=== PATIENT | male | born 1945 | race Caucasian/White ===

== ENCOUNTER 2023-12-21 11:19 | Outpatient (CLI) | payer MEDICARE | END 2023-12-21 23:59 | disposition EMS.NT | LOC: EMS 11:19 | DX: S00.83XA Contusion of other part of head, initial encounter (principal); W01.0XXA Fall on same level from slipping, tripping and stumbling without subsequent striking against object, initial encounter; Y92.480 Sidewalk as the place of occurrence of the external cause ==

== ENCOUNTER 2023-12-21 12:15 | Emergency (ER) | payer MEDICARE ==
[2023-12-21] MEDS ORDERED: ACETAMINOPHEN 500 MG TABLET PO ONE (12:36)
--- NOTE | 2023-12-21 15:37 | ED Physician Documentation ---
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 He was walking with family today on uneven ground and fell going forward. He injured his left chest wall, left knee, and left face/head. He is up-to-date on tetanus. There was brief loss of consciousness. PD ED PE NORMAL - Vitals Vital signs reviewed: Yes - General General: Alert and oriented X 3, No acute distress - HEENT HEENT: PERRL, EOMI, Other (Abrasions on the left forehead and face without any bony facial tenderness. There is a contusion on the left forehead.) - Neck Neck: Supple, no meningeal sign, No bony TTP - Cardiac Cardiac: RRR, No murmur, Other (Tender over the anterior upper and middle ribs on the left. No step-off or crepitance.) - Respiratory Respiratory: No respiratory distress, Clear bilaterally - Abdomen Abdomen: Non tender - Derm Derm: Normal color, Warm and dry - Extremities Extremities: Other (Shallow abrasion over the left knee with mild tenderness but full range of motion. No ligamentous laxity.) - Neuro Neuro: Alert and oriented X 3, Normal speech Eye Opening: Spontaneous Motor: Obeys Commands Verbal: Oriented GCS Score: 15 Results - Rads (name of study) CT head, C-spine, chest, and left knee x-ray were negative Relevant Findings:: Final report received, EMP independent interpretation of test Departure - Departure Disposition: 01 Home, Self Care Clinical Impression: Ground-level fall Contusion of left knee Qualifiers: Encounter type: initial encounter Qualified Code(s): S80.02XA - Contusion of left knee, initial encounter Concussion Qualifiers: Encounter type: initial encounter Loss of consciousness presence/duration: without LOC Qualified Code(s): S06.0X0A - Concussion without loss of consciousness, initial encounter Chest wall contusion Qualifiers: Encounter type: initial encounter Laterality: left Qualified Code(s): S20.212A - Contusion of left front wall of thorax, initial encounter Comments: EMR was down at the time of service so discharge counseling included wound care and icing as well as Tylenol for pain.
[2023-12-21 15:40] VITALS: BP 116/80; O2SAT 100
--- NOTE | 2023-12-21 16:06 | XRAY Report ---
PROCEDURE: X-RAY OF THE LEFT KNEE THREE VIEWS INDICATIONS: fall with left knee pain; priors: none TECHNIQUE: 4 views of the knee(s) were acquired. COMPARISON: None. FINDINGS: Bones: No fractures or dislocations mild degenerative osteophytes.. No suspicious bony lesions. Soft tissues: No knee joint effusion. No suspicious soft tissue calcifications or masses. IMPRESSION: No acute bony abnormality. Mild degenerative change. Reviewed by: Yinka Tong MD on 12/21/2023 1:26 PM PDT Approved by: Yinka Tong MD on 12/21/2023 1:26 PM PDT Station ID: [id number]
--- NOTE | 2023-12-21 16:06 | CT Report ---
PROCEDURE: CT HEAD WO CONTRAST INDICATIONS: fall/trauma TECHNIQUE: 4.5 mm thick angled axial sections acquired from the foramen magnum to the vertex after the administr ation of intravenous contrast. For radiation dose reduction, the following was used: automated expo sure control, adjustment of mA and/or kV according to patient size. COMPARISON: None FINDINGS: Image quality: Excellent. CSF Spaces: Basal cisterns are patent. No extra-axial fluid collections. Ventricles are normal in size and shape. Brain: No midline shift. No intracranial bleeds or masses. Small-white interface appears normal. Skull and face: Calvarium and visualized facial bones appear intact, without suspicious lesions. Sinuses: Visualized sinuses and mastoids are clear. IMPRESSION: No acute intracranial process Reviewed by: Yinka Tong MD on 12/21/2023 2:14 PM PDT Approved by: Yinka Tong MD on 12/21/2023 2:14 PM PDT Station ID: [id number]
--- NOTE | 2023-12-21 16:07 | CT Report ---
PROCEDURE: CT CERVICAL SPINE WO CONTRAST INDICATIONS: fall/trauma TECHNIQUE: Noncontrast 3 mm thick sections acquired from the skull base to the T4 level. Sagittal and coronal r eformats were then constructed. For radiation dose reduction, the following was used: automated exp osure control, adjustment of mA and/or kV according to patient size. COMPARISON: None. FINDINGS: Image quality: Excellent. Bones: No fractures or dislocations. Visualized superior ribs are intact. Bilateral areas of facet hypertrophy. Bony left foraminal narrowing at C3-C4 and C4-C5. Soft tissues: Prevertebral soft tissues are normal in thickness. No paravertebral hematomas. No ap ical pneumothoraces. IMPRESSION: 1. No acute cervical fracture or dislocation. 2. Cervical spondylosis. Reviewed by: Yinka Tong MD on 12/21/2023 2:16 PM PDT Approved by: Yinka Tong MD on 12/21/2023 2:16 PM PDT Station ID: [id number]
--- NOTE | 2023-12-21 16:07 | CT Report ---
PROCEDURE: CT CHEST WO CONTRAST INDICATIONS: fall trauma TECHNIQUE: Noncontrast 1mm axial images were acquired from the pulmonary apices to the posterior costophrenic an gles. Axial 5 mm soft tissue kernel reconstructions were performed as well as 8 mm axial MIP and cor onal and sagittal 5 mm reformations. For radiation dose reduction, the following was used: automate d exposure control, adjustment of mA and/or kV according to patient size. COMPARISON: None FINDINGS: Image quality: Excellent. Lungs and pleura: No consolidation. No pleural effusions. No pneumothorax. No suspicious pulmonary n odules which require follow up. No contusions. Mediastinum: Heart size is normal. No pericardial effusion. No large vessel abnormality. No mediastin al adenopathy by size criteria. Moderate LAD calcifications for age. Chest wall and lower neck: Thyroid is unremarkable. No axillary or supraclavicular adenopathy by size . Bones: No aggressive osseous abnormality. Diffuse idiopathic skeletal hyperostosis. Shoulder arthropl asties. Upper Abdomen: Unremarkable. IMPRESSION: No evidence of chest injury. Reviewed by: Baldo Hartley MD on 12/21/2023 3:10 PM PDT Approved by: Baldo Hartley MD on 12/21/2023 3:10 PM PDT Station ID: [id number]
== END 2023-12-21 15:52 | disposition home or self-care (01) ==
LOC: ED 12:15
DX: S06.0X1A Concussion with loss of consciousness of 30 minutes or less, initial encounter (principal); R40.2412 Glasgow coma scale score 13-15, at arrival to emergency department; S00.83XA Contusion of other part of head, initial encounter; S20.212A Contusion of left front wall of thorax, initial encounter; S00.81XA Abrasion of other part of head, initial encounter; S80.212A Abrasion, left knee, initial encounter; W18.39XA Other fall on same level, initial encounter; Y93.01 Activity, walking, marching and hiking
CPT/HCPCS: 70450; 71250; 72125; 73564; 99284; A9270